=== PATIENT | female | born 1970 | race Caucasian/White ===

== ENCOUNTER 2019-08-22 12:00 | Outpatient (CLI) | payer MEDICARE, MEDICAID ==
[~2019-08-22 12:00] MED LIST: ALBU8.5H8 INH; DULO60CA7 PO; HYDR25CA PO; IPRA3AMP30 NEB; LEVO200T42 PO; LORA1TAB PO; OMEP-110 PO; ONDA8TAB9 PO; PREG100C PO; QUET150T2 PO; TIZA4CAP PO; TOPI200T25 PO
== END 2019-08-22 23:59 | disposition home or self-care (01) ==
LOC: CARD 12:00
PROVIDERS: ATTEND Psychiatry & Neurology Neurology
DX: G40.909 Epilepsy, unspecified, not intractable, without status epilepticus (principal); E03.9 Hypothyroidism, unspecified; J45.909 Unspecified asthma, uncomplicated; F41.8 Other specified anxiety disorders; E78.5 Hyperlipidemia, unspecified; G43.909 Migraine, unspecified, not intractable, without status migrainosus
CPT/HCPCS: 95819

== ENCOUNTER → 2020-08-31 | Outpatient (CLI) | payer MEDICARE, MEDICAID ==
[~2020-08-31] MED LIST changes: +OMNIPAQUE 350 MG/ML, 100ML BOTTLE ONE
== END | disposition home or self-care (01) ==
LOC: CFH 13:40
PROVIDERS: ATTEND Family Medicine
DX: E83.51 Hypocalcemia (principal); D64.9 Anemia, unspecified; R63.4 Abnormal weight loss
CPT/HCPCS: 74177; Q9967